=== PATIENT | female | born 1970 ===

== ENCOUNTER 2017-06-14 09:54 | Day surgery (SDC) | payer BC, OTHER ==
[2017-06-08 13:33] VITALS: BMI 21.2
[2017-06-14 10:27] LABS: HEMATOCRIT 39.4 % (34.0-47.0); MEAN CELL VOLUME 90.3 fl (81.0-99.0); MEAN CORPUSCULAR HEMOGLOBIN 30.1 pg (27.0-31.0); MEAN CORPUSCULAR HGB CONC 33.3 g/dL (33.0-37.0); RED CELL DISTRIBUTION WIDTH 12.6 % (11.5-14.5); WHITE BLOOD COUNT 5.7 K/uL (4.8-10.8)
[2017-06-14] MEDS ORDERED: Propofol 10 mg/ml Inj (20 ML) ONE (15:40)
[2017-06-14] MEDS ORDERED: Midazolam 2 MG/2 ML VIAL ONE (15:40)
[2017-06-14] MEDS ORDERED: Rocuronium 10 mg/ml (5 ml) ONE (15:40)
[2017-06-14] MEDS ORDERED: Dexamethasone 4 mg/1 ml ONE (15:41)
[2017-06-14] MEDS ORDERED: Succinylcholine 200 mg/10 ml Inj IV ONE (15:44)
[2017-06-14] MEDS ORDERED: ceFAZolin IV 1 gm in Dextrose 2 GM/100 ML BAG IVPB ONE (15:56)
[2017-06-14] MEDS ORDERED: Bupivacaine 0.5% Inj(30mL) ONE (15:56)
[2017-06-14] MEDS ORDERED: Lactated Ringer's 1,000 ML IV ONE ×3 (16:17→18:35)
[2017-06-14] MEDS ORDERED: Bupivacaine 0.5% 50 ML IJ ONE ×2 (16:41)
[2017-06-14] MEDS ORDERED: Neostigmine Methylsulfate 3mg/3ml Syringe IV ONE (17:30)
[2017-06-14] MEDS ORDERED: Silver Nitrate Topical - Stick TOP ONE (17:42)
[2017-06-14] MEDS ORDERED: HYDROmorphone 0.5 mg/0.5 ml ISec IVP PRN (18:06)
[2017-06-14] MEDS ORDERED: Lactated Ringer's 1,000 ML IV SCH (18:15)
[2017-06-14] MEDS ORDERED: Oxycodone/Acetaminophen 5/325 mg Tab PO PRN (18:26)
[2017-06-14 19:07] VITALS: O2SAT 98
[2017-06-14 20:07] VITALS: RESP 20
[2017-06-14 21:01] VITALS: BP 105/69; PULSE 90; TEMP 97.5
--- NOTE | 2017-06-28 13:18 | OP ---
PROCEDURE DATE: 06/14/2017 PREOPERATIVE DIAGNOSES: Pelvic pain, dysmenorrhea, dyspareunia, rule out endometriosis. POSTOPERATIVE DIAGNOSES: Pelvic pain, dysmenorrhea, dyspareunia, rule out endometriosis, pelvic endometriosis. PROCEDURE: Cystoscopy with bilateral ureteral catheterization, hysteroscopy, robotic excision of endometriosis, and bilateral ureterolysis. SURGEON: Davie Ray MD. SENIOR SOFTWARE QA ANALYST: Nir Rios MD. ANESTHESIA ADMINISTERED BY: Adriel Johansen MD. ESTIMATED BLOOD LOSS: Minimal. COMPLICATIONS: None. DESCRIPTION OF PROCEDURE: After adequate anesthesia was obtained, the patient was placed in the dorsal lithotomy position. She was prepped and draped. The surgeon was gowned and gloved. All areas prone to pressure were padded extensively and a time-out was taken. At this point, under direct visualization, a cystoscope was inserted into the bladder and a pancystoscopy was performed. Both ureters appeared to be in the normal anatomical position. The right ureter was then catheterized all the way to the distal ureter with an open-ended catheter and 5 mL of IC-Green were injected into the right ureter. At this point, the catheter was removed and attention was on the left ureter, which was catheterized all the way to the distal ureter. 5 mL of IC-Green were also injected. At this point, the cystoscope was removed and a Dolan was inserted into the bladder under direct visualization. At this point, the anterior lip of the cervix was grasped, the cervix was dilated, and a hysteroscopy was performed revealing a normal cavity. At this point, attention was on the abdomen where after re-gowning and re-gloving, an open laparoscopy technique was used to enter the abdominal cavity. The peritoneum was entered in a blunt fashion and a cannula was placed. The abdomen was insufflated and under direct visualization, a left upper quadrant, left mid quadrant, and right upper quadrant catheters were inserted. At this point, the da Viviana robot was docked and targeted. The procedure was started. The upper abdomen appeared to be normal. The pelvis was visualized, appeared to have multiple areas with inflammatory appearing lesions suspicious of endometriosis. Both ovaries appeared to be normal and the fallopian tubes appeared to be normal. The left ovary was elevated, the peritoneum was visualized. The ureter was visualized utilizing fluorescent technology. The peritoneum was entered and the retroperitoneal space was explored. A full dissection was performed dissecting the ureter out of the way, and with full ureterolysis and an area of peritoneum was dissected off up from the utero-ovarian ligament and the ovarian fossa and all the way down to the uterosacral ligament on the left side. At this point, it was checked for hemostasis and appeared to be excellent and the attention was on the right hand side where similarly the right ovary was elevated, the peritoneum was entered in a sharp fashion. The retroperitoneal space was entered and a full dissection was performed in a step by step fashion excising a large area of peritoneum with inflammatory changes suspicious of endometriosis. Other areas that were suspicious for inflammatory changes or endometriosis were ablated utilizing energy as well as full cul-de-sac with peritoneal destruction. At this point, it was checked for hemostasis and appeared to be excellent. The robot was undocked, the instruments were removed, and the abdomen desufflated. The incision was closed with 0-vicryl for the fascia and 4-0 Monocryl for the skin. At the end of the procedure, all tapes and instruments counts were correct. The patient tolerated the procedure well and was taken to recovery room in excellent condition. Davie Ray MD
== END 2017-06-14 22:20 | disposition home or self-care (01) ==
LOC: H.OPSURG 09:54 → H.MEDSURG1 19:57 → H.OPSURG 22:20
PROVIDERS: ATTEND Obstetrics & Gynecology Reproductive Endocrinology
DX: R10.2 Pelvic and perineal pain (principal); N94.6 Dysmenorrhea, unspecified; N94.10 Unspecified dyspareunia; N80.3 Endometriosis of pelvic peritoneum
CPT/HCPCS: 36415; 52005; 53899; 85027; 86850; 86900; 88305; C1729; J0330; J0690; J1100; J2001; J2250; J2405; J2710; J2765; J3010; J7030; J7040; J7120